=== PATIENT | female | born 1930 | race Caucasian/White ===

== ENCOUNTER 2018-01-21 22:12 | Observation (INO) | payer OTHER, BC, MEDICARE ==
[~2018-01-21] VITALS: Ht 162.6 cm; Wt 65.7 kg
[~2018-01-21 22:12] MED LIST: ALEVE220 MG PO; AMBIEN10 MG PO; COLACE100 MG PO; DITROPAN XL5 MG PO; ENDOCET 5-3251 EACH PO; EYE DROP BOTH EYES; FIBER LAXATIV0.52 GM PO; HALOBETASOL PRO15 GM TP; HYDROCODON-ACE1 EAC5 PO; HYDROCODON-ACE1 EACH PO; IBUPROFEN800 MG PO; LEVOTHYROXINE137 MCG PO; LISINOPRIL40 MG PO; LORTAB 10-3251 EACH PO; MELOXICAM15 MG PO; MOTRIN800 MG PO; OMEPRAZOLE40 M1 PO; PATADAY2.5 ML BOTH EYES; TRAZODONE HCL50 MG PO; VERAPAMIL HCL120 M2 PO; VERAPAMIL HCL120 MG PO; ZESTORETIC 20-1 EAC1 PO; ZESTORETIC,P1 TABLE2 PO
[2018-01-21 22:58] LABS: HEMATOCRIT 31.5 % (36.0-46.0); HEMOGLOBIN 10.8 G/DL (11.9-15.5); MCH 33.6 PG (29.0-34.0); MCHC 34.3 G/DL (30.0-36.0); MCV 98.1 FL (83-99); PLATELET COUNT 236 K/uL (156-360); RBC DIS.WIDTH-CV 12.2 % (11.8-14.6); RBC DIS.WIDTH-SD 44.4 % (39-53); RED BLOOD COUNT 3.21 M/uL (3.80-5.20); WHITE BLOOD COUNT 6.2 K/uL (4.1-10.2)
[2018-01-21 23:06] LABS: ALBUMIN 3.8 g/dL (3.2-4.8); CHLORIDE 102 mEq/L (99-109); POTASSIUM 3.6 mEq/L (3.7-5.4); SODIUM 138 mEq/L (136-147)
[2018-01-21 23:08] LABS: GLUCOSE 101 mg/dL (70-99)
[2018-01-21 23:09] LABS: TOTAL PROTEIN 5.9 g/dL (6.4-8.3)
[2018-01-21 23:10] LABS: TOTAL BILIRUBIN 0.6 mg/dL (0.0-1.0)
[2018-01-21 23:12] LABS: ALKALINE PHOSPHATASE 124 IU/L (3-129); CREATININE 0.8 mg/dL (0.6-1.3); GFR ESTIMATE (CALCULATED) > 59 mL/min/
[2018-01-21 23:13] LABS: UREA NITROGEN (BUN) 13 mg/dL (9-23)
[2018-01-21 23:14] LABS: AST (GOT) 22 IU/L (2-34)
[2018-01-21 23:15] LABS: ALT (GPT) 9 IU/L (3-49); LIPASE 30 U/L (1.0-51.0)
[2018-01-21 23:21] LABS: TROP-I INTERPRETATION NEGATIVE; TROPONIN-I 0.04 ng/mL (0.0-0.30)
[2018-01-22] MEDS ORDERED: TRAZODONE HCL50 MG PO (00:30)
[2018-01-22] MEDS ORDERED: LATANOPROST2.5 ML BOTH EYES (00:33)
[2018-01-22] MEDS ORDERED: TYLENOL REGULA325 MG PO (00:36)
[2018-01-22 05:43] LABS: HEMOGLOBIN 10.3 G/DL (11.9-15.5); MCH 33.9 PG (29.0-34.0); MCHC 34.3 G/DL (30.0-36.0); MCV 98.7 FL (83-99); PLATELET COUNT 211 K/uL (156-360); RBC DIS.WIDTH-CV 12.5 % (11.8-14.6); RBC DIS.WIDTH-SD 44.6 % (39-53); RED BLOOD COUNT 3.04 M/uL (3.80-5.20); WHITE BLOOD COUNT 4.5 K/uL (4.1-10.2)
[2018-01-22 06:04] LABS: TROP-I INTERPRETATION NEGATIVE; TROPONIN-I 0.04 ng/mL (0.0-0.30)
[2018-01-22 06:07] LABS: ALBUMIN 3.6 G/DL (3.2-4.8); ALKALINE PHOSPHATASE 96 IU/L (3-129); ALT (GPT) 7 IU/L (3-49); AST (GOT) 20 IU/L (2-34); CHLORIDE 103 MEQ/L (99-109); CREATININE 0.8 MG/DL (0.6-1.3); GFR ESTIMATE (CALCULATED) > 59 mL/min/; GLUCOSE 102 mg/dL (70-99); POTASSIUM 3.9 MEQ/L (3.7-5.4); SODIUM 138 MEQ/L (136-147); TOTAL BILIRUBIN 0.6 MG/DL (0.0-1.0); TOTAL PROTEIN 5.2 G/DL (6.4-8.3); UREA NITROGEN (BUN) 12 mg/dL (9-23)
[2018-01-22 09:00] VITALS: BP 147/69
[2018-01-22 11:14] LABS: TROP-I INTERPRETATION NEGATIVE; TROPONIN-I 0.04 ng/mL (0.0-0.30)
[2018-01-22] MEDS ORDERED: ADULT ASPIRIN81 MG PO (12:47)
[2018-01-22 15:44] VITALS: BP 147/64
== END 2018-01-22 17:18 | disposition home or self-care (01) ==
LOC: EME → EDBD 22:12 → EDOF 01-22 02:22 → 4SOUTH 01-22 02:22 → EDOF 01-22 02:22 → ENRESERV 01-22 02:23 → 4SOUTH 01-22 03:29
PROVIDERS: Emergency Medicine; Internal Medicine; Nurse Practitioner Family
PROC: B246ZZZ Ultrasonography of Right and Left Heart (ICD-10-PCS; principal; 2018-01-22)
DX: R07.9 Chest pain, unspecified (principal); R79.1 Abnormal coagulation profile; E87.6 Hypokalemia; I27.20 Pulmonary hypertension, unspecified; I45.10 Unspecified right bundle-branch block; I08.3 Combined rheumatic disorders of mitral, aortic and tricuspid valves; I10 Essential (primary) hypertension; E03.9 Hypothyroidism, unspecified; E78.5 Hyperlipidemia, unspecified; K21.9 Gastro-esophageal reflux disease without esophagitis; M19.90 Unspecified osteoarthritis, unspecified site; Z96.653 Presence of artificial knee joint, bilateral; Z90.49 Acquired absence of other specified parts of digestive tract; Z90.710 Acquired absence of both cervix and uterus; Z82.5 Family history of asthma and other chronic lower respiratory diseases; Z84.1 Family history of disorders of kidney and ureter
CPT/HCPCS: 71045; 78582; 80053; 83690; 84484; 85027; 85379; 93005; 93306; 99281; 99284; A9540; A9567; G0378; J1644; J7030